=== PATIENT | male | born 1995 | race Asian ===

== ENCOUNTER 2019-07-16 14:20 | Emergency (ER) | payer SELFPAY ==
[~2019-07-16] VITALS: Ht 180.3 cm; Wt 118.2 kg
[2019-07-16] MEDS ORDERED: IBUP-1506 PO (14:35)
[2019-07-16] MEDS ORDERED: KETOROLAC TROMETHAMINE 60 MG/2 ML VIAL IM ONE (15:30)
[2019-07-16] MEDS ORDERED: CYCLOBENZAPRINE HCL 10 MG TABLET PO ONE (15:30)
[2019-07-16 15:40] VITALS: BP 141/95
== END 2019-07-16 15:53 | disposition home or self-care (01) ==
LOC: EMS 14:21
DX: S39.012A Strain of muscle, fascia and tendon of lower back, initial encounter (principal); X58.XXXA Exposure to other specified factors, initial encounter; Y93.89 Activity, other specified; Y92.89 Other specified places as the place of occurrence of the external cause; Y99.0 Civilian activity done for income or pay
CPT/HCPCS: 96372; 99283; J1885